=== PATIENT | female | born 1990 | race Caucasian/White ===

== ENCOUNTER 2023-02-26 09:26 | Outpatient (CLI) | payer OTHER, SELFPAY | END 2023-02-26 09:27 | disposition home or self-care (01) | LOC: ANHSURGERY 09:32 | PROVIDERS: PCP Family Medicine; Visit Provider Obstetrics & Gynecology | DX: Z01.818 Encounter for other preprocedural examination (principal); N83.209 Unspecified ovarian cyst, unspecified side | CPT/HCPCS: 36415; 86850; 86900; 86901 ==

== ENCOUNTER 2023-03-05 00:22 | Day surgery (SDC) | payer OTHER, SELFPAY ==
[2023-02-24 11:32] VITALS: BMI 32.9
--- NOTE | 2023-02-24 11:40 | PC.NURSE ---
Report to the Outpatient Waiting Room, entrance under the green pavilion located off [facility], at time 7:00 on date 03/05/23. Planned Procedure Time: 9:00. Time changes happen often and if your time is changed the preop area will call you the afternoon before. - You and your visitor will be asked to self-screen and do not enter if you have any COVID symptoms. - A mask is optional within the hospital at this time. Patients may have clear liquids (water, carbonated beverages, clear teas, apple juice) until 3 hours prior to surgery (6:00) with a maximum of 20 ounces. - No food from midnight until time of surgery Take the following medications with a SIP of water the morning of surgery: N/A DO NOT STOP ANY OF YOUR OTHER PRESCRIPTION MEDICATIONS PRIOR TO SURGERY ?EXCEPT THE FOLLOWING Medications to discontinue per physician: N/A Date to take last dose: N/A Please no make-up, nail stateless, hairspray, perfume, deodorant, or body powder the day of surgery. No jewelry (including any body piercings) or valuables the day of surgery, leave them at home. Please take a shower or bath the night before, or the morning of, surgery with an antibacterial soap. Wear comfortable, loose fitting clothing. - Jewelry must be removed prior to entering the operating room. Rings and piercings that are not removed may be cut off. - The hospital will not accept responsibility for valuables. - Please leave all valuables, including medications, at home the day of surgery. If you are going home after surgery, a licensed bicycle taxi driver must drive you home. - NO public transportation without another adult if you receive anesthesia. - We recommend that an adult stay with you for 24 hours following discharge. - We also recommend that you do not drive, make important decision, drink alcoholic beverages, or take any drugs that were not prescribed by your health care provider for at least 24 hours after your discharge time. Follow any additional instructions given to you from your surgeon. If you or anyone in your household have experienced Covid symptoms in the past week, please notify your surgeon or the nurse liaison at the phone number below for possible testing. Telephone instructions given to PT - DAVID MARCIAL and asked if any additional questions and then verbalized understanding. Patient advised to call surgeon office or pre surgery nurse liaison [phone] if any additional questions.
--- NOTE | 2023-03-03 07:28 | PM.IMHP ---
H&P: HPI History of Present Illness Date/Time: 03/03/23 07:28 Chief Complaint: Pelvic pain with right ovarian cyst and dysmenorrhea Narrative: Was a 32-year-old [id number]-[id number] mom who is admitted for laparoscopy with right ovarian cystectomy. She has pain discomfort and dyspareunia. Removed she has an ultrasound which shows right ovarian cyst. The pain seems to be especially more on the right. Risks and benefits of this procedure reviewed including but not exclusive of , aspiration pneumonia, bleeding, transfusion, perforation injury to bowel, bladder, ureters, or other internal organs with need for open laparotomy. She received the [employer] handout entitled laparoscopy. She had all questions answered. She asked to proceed PMF Family History Family History Grandparent Hypertension Family history of malignant neoplasm of ovary Social History Social History Smoking status: Never smoker Alcohol intake: never Substance use: current Substance use type: marijuana Living arrangements: with family Spiritual care concerns: No Meds Home Medications and Allergies Home Medications Medication Instructions Recorded Confirmed Type No Home Medications 02/24/23 02/24/23 History Allergies Allergy/AdvReac Type Severity Reaction Status Date / Time codeine Allergy Unknown Vomiting Verified 02/24/23 11:31 latex Allergy Rash Verified 02/24/23 11:31 hydrocodone AdvReac Intermediate VOMITING Verified 02/24/23 11:31 Exam Const: General: cooperative, healthy appearing and comfortable Nutritional Appearance: average body habitus Orientation/consciousness: oriented to person, oriented to place and oriented to time HENMT: Head: normal to inspection Resp: Effort & Inspection: normal respiratory effort Cardio: Rate: regular rate Rhythm: regular rhythm Heart sounds: S1 normal heart sound present and S2 normal heart sound present GI: Inspection: normal to inspection : External Female Exam: normal external appearance Speculum Exam - Vagina: normal appearance of the vagina Speculum Exam - Cervix: normal appearance of the cervix Bimanual exam- vagina & uterus: Uterine tenderness Bimanual Exam- Adnexa, other: tender bilaterally Assessment and Plan Assessment and plan (1) Right ovarian cyst: Code(s): N83.201 - Unspecified ovarian cyst, right side Status: Acute (2) Pelvic pain: Code(s): R10.2 - Pelvic and perineal pain Status: Acute Plan Laparoscopic right cystectomy.
[2023-03-05] VITALS (9 sets, daily range): BP systolic 104–124; BP diastolic 72–90; PULSE 54–92; RESP 12–20; TEMP 36.2–36.3; O2SAT 96–100
--- NOTE | 2023-03-05 06:28 | WPDHPUPDATE1 ---
History and Physical Update Update Date/Time: 03/05/23 06:28 History and Physical has been reviewed, including an updated exam of the patient. There are NO changes in the patient's condition. Risks, benefits, and alternatives have been discussed and questions answered. Patient agrees to proceed with procedure.
--- NOTE | 2023-03-05 07:45 | P.PNAN_ITS ---
Anes - Initial Pre Proc Eval Procedure: Operation Date: 03/05/23 09:00 Proposed Procedures p Laparoscopy Right Ovarian Cystectomy - Maury Lara MD Date/Time: 03/05/23 07:45 Surgeon: Maury Lara MD Pre Op Diagnosis: right ovarian cyst, pelvic pain, dysmenorrhea Patient Data Age: 32 Gender: F Height: 1.7 m Weight: 95.3 kg Allergies Allergy/AdvReac Type Severity Reaction Status Date / Time codeine Allergy Unknown Vomiting Verified 03/05/23 07:22 latex Allergy Rash Verified 03/05/23 07:22 hydrocodone AdvReac Intermediate VOMITING Verified 03/05/23 07:22 Home Medications Medication Instructions Recorded Confirmed Type hydrocodone 5 mg-acetaminophen 325 1 tablet PO Q4H PRN pain #20 tabs 03/05/23 Rx mg tablet Patient hx anesthesia problems: none Family hx anesthesia problems: none Results Review: All pre-operative results and documents have been reviewed as part of the pre- operative evaluation. [facility] Past Medical History Medical History (Updated 03/05/23 @ 07:53 by Maury Lynch MD) Anxiety Marijuana abuse Obesity Surgical History Surgical History (Updated 03/05/23 @ 07:54 by Maury Lynch MD) H/O nasal septoplasty History of cholecystectomy Family History Family History Grandparent Hypertension Family history of malignant neoplasm of ovary Social History Social History Smoking status: Never smoker Alcohol intake: never Substance use: current Substance use type: marijuana Living arrangements: with family Spiritual care concerns: No Anes - Eval Final PreProcedure Day of Procedure 03/05/23 07:45 Patient weight: obese Heart: regular rate and rhythm Lungs: clear to auscultation Airway: Mallampati scale class II Neurological: alert and oriented Last oral intake: >/= 8 hours ASA classification: III Emergent: no Anesthetic plan: proceed Anesthesia type and monitoring: general GIVS and standard monitoring Results Review: All pre-operative results and documents have been reviewed as part of the pre- operative evaluation. Informed Consent: The patient's anesthetic plan and its attendant risks and benefits were discussed with the patient/family/POA. Questions were solicited and answers provided to the satisfaction of the patient/family/POA.
[2023-03-05] MEDS: LACTATED RINGERS 1,000 ML 30 ML IV CONT ×2 (07:50→10:09)
[2023-03-05] MEDS: KETOROLAC 15 MG/ML VIAL (*BKC) IV PUSH (08:09)
[2023-03-05] MEDS: SCOPOLAMINE 1.5 MG PATCH TRANSDERM (08:12)
--- NOTE | 2023-03-05 09:01 | P.OP_ITS ---
Procedure Note - Detailed Date of Procedure 03/05/23 Pre-op Diagnosis right ovarian cyst, pelvic pain, dysmenorrhea Post-op Diagnosis Other (Pelvic pain right ovarian cyst dysmenorrhea endometriosis) Procedure Performed Laparoscopy with destruction of right ovarian cyst and destruction of endometriosis Surgeon Maury Lara MD Anesthesia General Indications This 32-year-old female with a right ovarian cyst and pelvic pain Findings Benign-appearing right ovarian cyst that appeared follicular in nature. [id number] of serosanguineous fluid in the cul-de-sac. Small areas of powder burn endometriosis along the right and left uterosacral ligaments. Normal-appearing left ovary and tube. Normal-appearing right tube. Normal- appearing uterus. Normal-appearing appendix. Gallbladder appeared to be surgically absent. Description of Procedure Patient was prepped and draped in the normal sterile fashion placed in the dorsal lithotomy position. Under excellent general trach anesthesia weighted speculum placed in posterior fornix vagina. Anterior lip of the cervix was grasped with a single-tooth tenaculum. The Pemberton's cannula inserted the cervix and attached to the single-tooth. This will be used later for uterine manipulation. The bladder was emptied of clear urine. The weighted speculum was removed. The gloves were changed. An infraumbilical incision made in the Veress needle passed in the abdomen. Abdomen filled with CO2 gas [id number]. 5mm trocar advanced under direct visualization assuring no injury. The patient placed in Trendelenburg and a suprapubic incision made. The 5mm trocar advanced under direct visualization assuring no injury. [id number] of serosanguineous fluid was seen in the cul-de-sac and this was suction removed. The right ovarian cyst appeared very simple and follicular in nature. It was opened in linear fashion and drained of clear follicular fluid. Irrigation undertaken until clear. Small areas of endometriosis were seen along the right left uterosacral ligament. These were cauterized at 45 w per 2nd and with good desiccation. Photo documentation was taken of the rest of the pelvis as noted above. The gas removed from the abd omen. The lower site removed. The upper site removed. The incisions closed with 4 Monocryl and glue. Patient went to recovery in satisfactory condition. All sponge, needle, instrument counts were correct. There were no immediate complications Estimated Blood Loss 25 Drains No Packing No Pathology None sent Complications No immediate complications Condition Stable Disposition PACU
[2023-03-05] MEDS: ONDANSETRON INJ 4 MG/2 ML VIAL IV PUSH (09:14)
[2023-03-05] MEDS: diphenhydrAMINE HCl INJ 50 MG/ML VIAL 25 MG IV PUSH (10:04)
--- NOTE | 2023-03-05 10:28 | SUR.PHASEII ---
1028 - MD Sony Lara notified that Phase 2 recovery did not receive paper prescription for hydrocodone - acetaminophen. Pt. can d/c home with ketorolac printed script only per MD Sony Lara.
== END 2023-03-05 10:54 | disposition home or self-care (01) ==
PROVIDERS: PCP Family Medicine; Visit Provider Obstetrics & Gynecology
PROC: (CPT 49320; principal; 2023-03-05 09:00)
DX: N83.201 Unspecified ovarian cyst, right side (principal); N80.3C3 Endometriosis of bilateral uterosacral ligament(s), unspecified depth; R10.2 Pelvic and perineal pain; N94.6 Dysmenorrhea, unspecified; F12.90 Cannabis use, unspecified, uncomplicated; E66.9 Obesity, unspecified; Z68.32 Body mass index [BMI] 32.0-32.9, adult
CPT/HCPCS: 58662; 36415; 86850; 86900; 86901; A9270; J1100; J1200; J1885; J2250; J2405; J2704; J2710; J7120

== ENCOUNTER 2024-08-23 09:02 | Outpatient (CLI) | payer OTHER, SELFPAY ==
[2024-08-23 10:02] LABS: Basophils Absolute Auto 0.1 K/mm3 (0.0-0.1); Basophils Percent Auto 0.9 % (0.2-1.2); Eosinophils Absolute Auto 0.3 K/mm3 (0-0.3); Eosinophils Percent Auto 4.6 % (0-4.4); Hematocrit 44.4 % (37.0-47.0); Hemoglobin 14.4 g/dL (12.0-15.0); Immature Granulocyte Absolute 0.02 K/mm3 (0.00-0.031); Immature Granulocyte Percent A 0.3 % (0-0.5); Lymphocytes Absolute Auto 2.37 K/mm3 (0.9-3.2); Lymphocytes Percent Auto 35.3 % (18.3-44.2); Mean Corpuscular HGB Conc 32.4 g/dl (32-36); Mean Corpuscular Hemoglobin 29.2 pg (26-34); Mean Corpuscular Volume 90.1 fl (80-100); Mean Platelet Volume 10.7 fl (7.4-10.4); Monocytes Absolute Auto 0.5 K/mm3 (0.1-0.6); Monocytes Percent Auto 6.7 % (2.6-8.5); Neutrophils Absolute Auto 3.5 K/mm3 (1.3-6.7); Neutrophils Percent Auto 52.2 % (45.5-73.1); Platelet Count Result 209 k/mm3 (150-375); Red Blood Count 4.93 M/mm3 (4.2-5.4); Red Cell Distribution Width 12.2 % (11.5-14.5); White Blood Count 6.7 K/mm3 (4.5-10.0)
== END 2024-08-23 09:03 | disposition home or self-care (01) ==
LOC: ANHLAB 09:04
PROVIDERS: PCP Family Medicine; Visit Provider Obstetrics & Gynecology
DX: N94.89 Other specified conditions associated with female genital organs and menstrual cycle (principal)
CPT/HCPCS: 36415; 85025; 86850; 86900; 86901

== ENCOUNTER 2024-08-25 00:01 | Day surgery (SDC) | payer OTHER, SELFPAY ==
--- NOTE | 2024-08-14 13:19 | SUR.PREOP ---
Report to the Outpatient Waiting Room, entrance under the green pavilion located off [facility], at time _0600_ on date _08/25/2024_. Planned Procedure Time: _0730_.? Time changes happen often and if your time is changed the preop area will call you the afternoon before. - You and your visitor will be asked to self-screen and do not enter if you have any COVID symptoms. Please call surgeon if you need to reschedule. - A mask is optional within the hospital at this time. Patients may have clear liquids (water, carbonated beverages, clear teas, apple juice) until 3 hours prior (0430) to surgery with a maximum of 20 ounces. - No food from midnight until time of surgery and no smoking, or chewing tobacco (or any form of nicotine). No chewing gum, candy or mints. Take only the following medications with a SIP of water on the morning of surgery: _NA_ DO NOT STOP ANY OF YOUR OTHER PRESCRIPTION MEDICATIONS PRIOR TO SURGERY EXCEPT THE FOLLOWING Hold all vitamins and supplements for 3 days per anesthesiologist. Medications to discontinue per physician _ketorolac per Dr. Sony Lara_ Please no make-up, nail indonesian, hairspray, perfume, deodorant, or body powder the day of surgery.? No jewelry (including any body piercings) or valuables the day of surgery, leave them at home.? Please take a shower or bath the night before, or the morning of, surgery with an antibacterial soap.? Wear comfortable, loose fitting clothing.? - Jewelry must be removed prior to entering the operating room.? Rings and piercings that are not removed may be cut off. - The hospital will not accept responsibility for valuables.? - Please leave all valuables, including medications, at home the day of surgery. If you are going home after surgery, a licensed jinrikisha driver must drive you home.? - NO public transportation without another adult if you receive anesthesia. - We recommend that an adult stay with you for 24 hours following discharge. - We also recommend that you do not drive, make important decision, drink alcoholic beverages, or take any drugs that were not prescribed by your health care provider for at least 24 hours after your discharge time. Follow any additional instructions given to you from your surgeon. Telephone instructions given to _Meghan_and asked if any additional questions and then verbalized understanding. Patient advised to call surgeon office or pre surgery nurse liaison [phone] if any additional questions.
[2024-08-14 13:30] VITALS: BMI 28.5
--- NOTE | 2024-08-22 07:53 | P.HP_ITS ---
H&P: HPI History of Present Illness Date/Time: 08/22/24 07:53 Chief Complaint: Pelvic pain dyspareunia Narrative: 34-year-old multiparous patient admitted for robotic total vaginal hysterectomy bilateral salpingectomy secondary to enlarged uterus and pelvic pain risks and benefits reviewed in full. She understands this will make her permanently infertile and all questions answered and asked to proceed Review of Systems Review of Systems: All systems reviewed & are unremarkable except as noted in HPI and below PMFSH Past Medical History Medical History Marijuana abuse Anxiety Obesity Surgical History Surgical History H/O nasal septoplasty History of cholecystectomy Family History Family History Grandparent Hypertension Family history of malignant neoplasm of ovary Social History Social History Smoking status: Never smoker Second hand tobacco smoke exposure: No Alcohol intake: never Substance use: current Substance use type: marijuana Other substance usage details: daily Living arrangements: with family Additional living arrangements comments: and children Spiritual care concerns: No Meds Home Medications and Allergies Home Medications ?Medication ?Instructions ?Recorded ?Confirmed ?Type ketorolac 10 mg tablet 10 mg PO QID 5 days #20 tabs 03/05/23 08/14/24 Rx Allergies Allergy/AdvReac Type Severity Reaction Status Date / Time codeine Allergy Unknown Vomiting Verified 08/14/24 13:31 latex Allergy Rash Verified 08/14/24 13:31 hydrocodone AdvReac Intermediate VOMITING Verified 08/14/24 13:31 Exam Const: General: cooperative, healthy appearing, comfortable and overweight Orientation/consciousness: oriented to person, oriented to place and oriented to time HENMT: Head: normal to inspection Resp: Effort & Inspection: normal respiratory effort Cardio: Rate: regular rate Rhythm: regular rhythm Heart sounds: S1 normal heart sound present and S2 normal heart sound present GI: Inspection: normal to inspection and obesity : External Female Exam: normal external appearance Speculum Exam - Vagina: normal appearance of the vagina Speculum Exam - Cervix: normal appearance of the cervix Bimanual exam- vagina & uterus: enlarged (Second- degree prolapse present) Bimanual Exam- Adnexa, other: normal adnexae Assessment and Plan Assessment and plan (1) Pelvic pain: Code(s): R10.2 - Pelvic and perineal pain Status: Acute (2) Uterine prolapse: Code(s): N81.4 - Uterovaginal prolapse, unspecified Status: Acute Plan Proceed with robotic total vaginal hysterectomy and bilateral salpingectomy
[2024-08-25] VITALS (11 sets, daily range): BP systolic 108–144; BP diastolic 72–85; PULSE 65–94; RESP 14–20; TEMP 36.4–37; O2SAT 92–100
--- OUTSIDE RECORDS SUMMARY | 2024-08-25 00:04 | XMS_ITS | Data Portability ---
[facility] Address [address] [place] [address] Assessment No assessment recorded. Plan of Treatment Reminders Order Date Submit Date Provider Last Modified By Organization Details Last Modified Time Details Appointments None recorded . Lab dhea-sul fate, serum 2016 017 [place] [facility], [address], [place], [address], 7 06:14:17 lipid panel, serum 2016 017 [place] [facility], [address], [place], [address], 7 06:14:16 testoste kit, total, serum 2016 017 [place] [facility], [address], [place], [address], 7 06:14:16 CMP, serum or plasma 2016 017 [place] [facility], [address], [place], [address], 7 06:14:15 TSH, ultra-se nsitive, serum 2016 017 [place] [facility], [address], [place], [address], 7 06:14:17 HbA1c (hemoglo bin A1c), blood 2016 017 [facility], [address], [place], [address], 7 06:14:17 FSH (follicl e-stimul ating hormone) , serum 2016 017 [facility], [address] [place] [address], [address], [place], [address], 7 06:14:18 lh (luteini zing hormone) , serum 2016 017 [facility], [address] [place] [address], [facility] [address], [place], [address], 7 06:14:18 prolacti n, serum 2016 017 [facility], [address] [place] [address], [facility] [address], [place], [address], 7 06:14:19 progeste kit, serum 2016 017 [facility], [address], [place], [address], 7 06:14:19 estradio l, serum 2016 017 [facility], [address], [place], [address], 7 06:14:19 pap, IG + HPV, cervical 2016 017 [facility], [address], [place], [address], 7 16:15:16 pregnanc y test, urine 2016 017 eliseo In-Office Order, Internal Use Only DO Not Attach Compendium DO Not Attach Compendium, Do Not Delete/merge, [id number] 7 15:26:35 urinalys is, dipstick [address] In-Office Order, Internal Use Only DO Not Attach Compendium DO Not Attach Compendium, Do Not Delete/merge, [id number] 7 15:26:35 bacteria l vaginosi s + vaginiti s panel, vaginal - Z11.3 2016 017 [place] [facility], [address] [place] [address], [address], [place], [address], 7 06:04:49 HSV (1+2) DNA, qual, PCR, unspecif ied specimen - Z11.3 2016 017 [place] [facility], [address] [place] [address], [address], [place], [address], 7 06:04:51 culture, vaginal/ rectal, streptoc occus group B - Z11.3 2016 017 [facility], [address] [place] [address], [address], [place], [address], 7 06:04:54 Referral nutritio nist/ randiian referral [address] Not available 7 15:52:48 bariatri c surgery referral - Bariatri c Surgery Consult [address] [email or web address] Not available 7 09:03:27 Procedures None recorded . Surgeries None recorded . Imaging None recorded . Medication Orders Lo Loestrin Fe 1 mg-10 mcg (24)/10 mcg (2) tablet 2019 020 INTERFACE [facility]61, [address] [place], [address], 0 16:11:54 Calcium with Vitamin D 600 mg-10 mcg (400 unit) tablet 2019 020 [facility] [address], [address] [place] [address], [address], 0 11:10:56 Slynd 4 mg (28) tablet 2019 020 [facility] 176, [address] [place] [address], [address], 0 11:11:00 28 mg iron-800 mcg tablet 2019 020 [facility] [address], [address] [place] [address], [address], 0 11:10:58 Contrave 8 mg-90 mg tablet,e xtended release 2016 017 [facility] Not available 0 10:55:32 metformi n 500 mg tablet 2016 017 [facility] [address], [address] [place] [address], [address], 0 10:55:38 calcium 600 mg (as carbonat e)-vitam in D3 20 mcg (800 unit) tablet 2016 017 [place] [address], [address] [place] [address], [address], 0 10:55:29 multivit patricia tablet 2016 017 [place] [address], [address] [place] [address], [address], 0 10:55:41 Patient TargetsNo targets recorded. Patient Instructions Encounter Date Encounter Id Patient Instructions Last Modified By Organization Details Last Modified Time 07/11/2014 [id number] implant for control: care instructions [email or web address] Not available 08/14/2014 14:39:25 08/26/2016 [id number] Learning About Weight-Loss (Bariatric) Surgery eliseo Not available 08/26/2016 15:54:38 bariatric surgery handout [email or web address] Not available 08/26/2016 15:55:38 learning about obesity [email or web address] Not available 08/26/2016 15:54:38 When You Want to Lose Weight: Care Instructions eliseo Not available 08/26/2016 15:54:38 polycystic ovary syndrome: care instructions eliseo Not available 08/26/2016 15:49:03 Reason for Referral Mail Delivery Supervisor/dietitian Refer ral for Obesity Obesity Referring Physician: Philipp Vivas [employer], Encounter Date: 08/26/2016 Bariatric Surgery Referral f or Obesity Obesity Bariatric Surgery Consult Referring Physician: Philipp Vivas [employer], Encounter Date: 08/26/2016 Results Created Date Observation Date Name Description Value Unit Range Abnormal Flag Note LastModifiedBy Organization Detail LastModifiedTime 08/27/19 17 08/26/2016 urina lysis , dipst ick Leukocytes Negati ve Not Available In-Office Order Internal Use Only DO Not Attach Compendium DO Not Attach Compendium, Do Not Delete/merge, [id number] 08/26/2016 14:57:10 08/27/19 17 08/26/2016 urina lysis , dipst ick Nitrite negati ve Not Available In-Office Order Internal Use Only DO Not Attach Compendium DO Not Attach Compendium, Do Not Delete/merge, [id number] 08/26/2016 14:57:10 08/27/19 17 08/26/2016 urina lysis , dipst ick Urobilinogen .2 Not Available In-Of fice Order Internal Use Only DO Not Attach Compendium DO Not Attach Compendium, Do Not Delete/merge, [id number] 08/26/2016 14:57:10 08/27/19 17 08/26/2016 urina lysis , dipst ick Protein Negati ve Not Available In-Office Order Internal Use Only DO Not Attach Compendium DO Not Attach Compendium, Do Not Delete/merge, [id number] 08/26/2016 14:57:10 08/27/19 17 08/26/2016 urina lysis , dipst ick pH 6.0 Not Available In-Office Order Internal Use Only DO Not Attach Compendium DO Not Attach Compendium, Do Not Delete/merge, 08/26/2016 14:57:10 08/27/19 17 08/26/2016 urina lysis , dipst ick Blood Negati ve Not Available In-Office Order Internal Use Only DO Not Attach Compendium DO Not Attach Compendium, Do Not Delete/merge, 08/26/2016 14:57:10 08/27/19 17 08/26/2016 urina lysis , dipst ick Specific [place] 1.020 Not Available In-Off ice Order Internal Use Only DO Not Attach Compendium DO Not Attach Compendium, Do Not Delete/merge, 08/26/2016 14:57:10 08/27/19 17 08/26/2016 urina lysis , dipst ick Ketone Negati ve Not Available In-Office Order Internal Use Only DO Not Attach Compendium DO Not Attach Compendium, Do Not Delete/merge, 08/26/2016 14:57:10 08/27/19 17 08/26/2016 urina lysis , dipst ick Bilirubin Negati ve Not Available In-Office Order Internal Use Only DO Not Attach Compendium DO Not Attach Compendium, Do Not Delete/merge, 08/26/2016 14:57:10 08/27/19 17 08/26/2016 urina lysis , dipst ick Glucose Negati ve Not Available In-Office Order Internal Use Only DO Not Attach Compendium DO Not Attach Compendium, Do Not Delete/merge, 08/26/2016 14:57:10 08/27/19 17 08/26/2016 pregn joseph test, urine HCG negati ve Not Available In-Office Order Internal Use Only DO Not Attach Compendium DO Not Attach Compendium, Do Not Delete/merge, 08/26/2016 14:57:09 08/27/19 17 08/27/2016 CMP, serum or plasm a glucose, serum 87 mg/dL 65-99 Not Available [facility] ([facility]) [address] [facility], [place], [address], 08/27/2016 06:14:15 08/27/19 17 08/27/2016 CMP, serum or plasm a BUN 10 mg/dL 6-20 Not Available [facility] ([facility]) [address] [place], [address], 08/27/2016 06:14:15 08/27/19 17 08/27/2016 CMP, serum or plasm a creatinine, serum 0.65 mg/dL 0.57-1 .00 Not Available [facility] ([facility]) [address] [place], [address], 08/27/2016 06:14:15 08/27/19 17 08/27/2016 CMP, serum or plasm a eGFR if nonafricn AM 125 mL/mi n/1.7 3 >59 Not Available [facility] ([facility]) [address] [place], [address], 08/27/2016 06:14:15 08/27/19 17 08/27/2016 CMP, serum or plasm a eGFR if africn AM 144 mL/mi n/1.7 3 >59 Not Available [facility] ([facility]) [address] [place], [address], 08/27/2016 06:14:15 08/27/19 17 08/27/2016 CMP, serum or plasm a BUN/creatini ne ratio 15 8-20 EFF ECTIV E AUGUST 31, 2016 BUN/C REATI NINE RATIO REFER ENCE INTER LYDIA WILL BE CLOUD ING TO: AGE MALE FEMAL E 0 DAYS - 7 DAYS 9 - 25 9 - 26 8 DAYS - 30 DAYS 8 - 32 10 - 33 1 MONTH - 6 MONTH S 11 - 57 11 - 54 7 MONTH S - 1 YEAR - 71 20 - 71 2 YEARS - 5 YEARS 19 - 51 19 - 49 6 YEARS - 12 YEARS 14 - 34 13 - 32 13 YEARS - 17 YEARS 10 - 22 10 - 22 18 YEARS - 59 YEARS 9 - 20 9 - 23 >59 YEARS 10 - 24 12 - 28 Not Available [facility] ([facility]) [address] [place], [address], 08/27/2016 06:14:15 08/27/19 17 08/27/2016 CMP, serum or plasm a sodium, serum 142 mmol/ L 134-14 4 Not Available [facility] ([facility]) [address] [place] [address], [address], 08/27/2016 06:14:15 08/27/19 17 08/27/2016 CMP, serum or plasm a potassium, serum 4.1 mmol/ L 3.5-5. 2 Not Available [facility] ([facility]) [address] [place], [address], 08/27/2016 06:14:15 08/27/19 17 08/27/2016 CMP, serum or plasm a chloride, serum 101 mmol/ L 96-106 Not Available [facility] ([facility]) [address] [place] [address], [address], 08/27/2016 06:14:15 08/27/19 17 08/27/2016 CMP, serum or plasm a carbon dioxide, total 21 mmol/ L 18-29 Not Available [facility] ([facility]) [address] [place] [address], [address], 08/27/2016 06:14:15 08/27/19 17 08/27/2016 CMP, serum or plasm a calcium, serum 9.5 mg/dL 8.7-10 .2 Not Available [facility] ([facility]) [address] [place], [address], 08/27/2016 06:14:15 08/27/19 17 08/27/2016 CMP, serum or plasm a protein, total, serum 7.3 g/dL 6.0-8. 5 Not Available [facility] ([facility]) [address] [place] [address], [address], 08/27/2016 06:14:15 08/27/19 17 08/27/2016 CMP, serum or plasm a albumin, serum 4.6 g/dL 3.5-5. 5 Not Available [facility] ([facility]) [address] [place], [address], 08/27/2016 06:14:15 08/27/19 17 08/27/2016 CMP, serum or plasm a globulin, total 2.7 g/dL 1.5-4. 5 Not Available [facility] ([facility]) [address] [place], [address], 08/27/2016 06:14:15 08/27/19 17 08/27/2016 CMP, serum or plasm a A/G ratio 1.7 1.2-2. 2 PLE ASE NOTE REFER ENCE MAILE Denise Not Available [facility] ([facility]) [address] [place], [address], 08/27/2016 06:14:15 08/27/19 17 08/27/2016 CMP, serum or plasm a bilirubin, total 0.7 mg/dL 0.0-1. 2 Not Available [facility] ([facility]) [address] [place], [address], 08/27/2016 06:14:15 08/27/19 17 08/27/2016 CMP, serum or plasm a alkaline phosphatase, S 56 IU/L 39-117 Not Available [facility] ([facility]) [address] [place], [address], 08/27/2016 06:14:15 08/27/19 17 08/27/2016 CMP, serum or plasm a AST (SGOT) 14 IU/L 0-40 Not Available [facility] ([facility] [address] [facility] [place], [address], 08/27/2016 06:14:15 08/27/19 17 08/27/2016 CMP, serum or plasm a ALT (SGPT) 17 IU/L 0-32 Not Available [facility] ([facility]) [address] [place], [address], 08/27/2016 06:14:15 08/27/19 17 08/27/2016 lipid panel , serum cholesterol, total 172 mg/dL 100-19 9 Not Available [facility] ([facility]) [address] [facility] [place], [address], 08/27/2016 06:14:16 08/27/19 17 08/27/2016 lipid panel , serum triglyceride s 131 mg/dL 0-149 Not Available [facility] ([facility]) [address] [facility], [place], [address], 08/27/2016 06:14:16 08/27/19 17 08/27/2016 lipid panel , serum HDL cholesterol 49 mg/dL >39 Not Available [facility] ([facility]) [address] [facility], [place], [address], 08/27/2016 06:14:16 08/27/19 17 08/27/2016 lipid panel , serum VLDL cholesterol anne 26 mg/dL 5-40 Not Available [facility] ([facility]) [address] [facility], [place], [address], 08/27/2016 06:14:16 08/27/19 17 08/27/2016 lipid panel , serum LDL cholesterol calc 97 mg/dL 0-99 Not Available [facility] ([facility]) [address] [facility], [place], [address], 08/27/2016 06:14:16 08/27/19 17 08/27/2016 lipid panel , serum comment: VOLUNTEER SERVICES COORDINATOR Not Available [facility] ([facility]) [address] [facility], [place], [address], 08/27/2016 06:14:16 08/27/19 17 08/27/2016 lipid panel , serum LDL/HDL ratio 2.0 ratio _unit s 0.0-3. 2 LDL/H DL RATIO MEN WOMEN 1/2 AVG.R ISK 1.0 1.5 AVG.R ISK 3.6 3.2 2X AVG.R ISK 6.2 5.0 3X AVG.R ISK 8.0 6.1 Not Available [facility] ([facility]) [address] [place], [address], 08/27/2016 06:14:16 08/27/19 17 08/27/2016 testo stero ne, total , serum testosterone , serum 48 NG/dL 8-48 Not Available [facility] ([facility]) [address] [place], [address], 08/27/2016 06:14:16 08/27/19 17 08/27/2016 testo stero ne, total , serum comment: VOLUNTEER SERVICES COORDINATOR Not Available [facility] ([facility]) [address] [place], [address], 08/27/2016 06:14:16 08/27/19 17 08/27/2016 HbA1c (hemo globi n A1c), blood hemoglobin A1C 5.3 % 4.8-5. 6 PRE-D IABET ES: 5.7 - 6.4 DIABE THU: >6.4 GLYCE RIDGE CONTR OL FOR ADULT S WITH DIABE THU: <7.0 Not Available [facility] ([facility]) [address] [place], [address], 08/27/2016 06:14:16 08/27/19 17 08/27/2016 dhea- sulfa te, serum DHEA-sulfate 214.5 ug/dL 110.0- 431.7 Not Available [facility] ([facility]) [address] [place], [address], 08/27/2016 06:14:17 08/27/1908/27/2016 TSH, ultra -sens itive , serum TSH 1.050 uIU/m L 0.450- 4.500 Not Available [facility] ([facility]) [address] [place], [address], 08/27/2016 06:14:17 08/27/19 17 08/27/2016 lh (lute inizi ng hormo ne), serum LH 20.8 mIU/m L ADULT FEMAL E: FOLLI CULAR PHASE 2.4 - 12.6 OVULA TION PHASE 14.0 - 95.6 LUTEA L PHASE 1.0 - 11.4 POSTM ENOPA USAL 7.7 - 58.5 Not Available [facility] ([facility]) [address] [place], [address], 08/27/2016 06:14:18 08/27/19 17 08/27/2016 FSH (foll icle- stimu latin g hormo ne), serum FSH 4.7 mIU/m L ADULT FEMAL E: FOLLI CULAR PHASE 3.5 - 12.5 OVULA TION PHASE 4.7 - 21.5 LUTEA L PHASE 1.7 - 7.7 POSTM ENOPA USAL 25.8 - 134.8 Not Available [facility] ([facility]) [address] [place], [address], 08/27/2016 06:14:18 08/27/19 17 08/27/2016 prola ctin, serum prolactin 19.1 NG/mL 4.8-23 .3 Not Available [facility] ([facility]) [address] [place], [address], 08/27/2016 06:14:19 08/27/19 17 08/27/2016 estra diol, serum estradiol 70.7 pg/mL ADULT FEMAL E: FOLLI CULAR PHASE 12.5 - 166.0 OVULA TION PHASE 85.8 - 498.0 LUTEA L PHASE 43.8 - 211.0 POSTM ENOPA USAL <6.0 - 54.7 PREGN JOSEPH 1ST TRIME STER 215.0 - >4300 .0 GIRLS (1-10 YEARS ) 6.0 - 27.0 MAHNAZ ECLIA METHO DOLOG Y Not Available [facility] ([facility]) [address] [place], [address], 08/27/2016 06:14:19 08/27/19 17 08/27/2016 proge stero ne, serum progesterone 0.3 NG/mL FOLLI CULAR PHASE 0.1 - 0.9 LUTEA L PHASE 1.8 - 23.9 OVULA TION PHASE 0.1 - 12.0 PREGN ANT FIRST TRIME STER 11.0 - 44.3 SECON D TRIME STER 25.4 - 83.3 THIRD TRIME STER 58.7 - 214.0 POSTM ENOPA USAL 0.0 - 0.1 Not Available [facility] ([facility]) [address] [place], [address], 08/27/2016 06:14:19 08/27/19 17 08/28/2016 bacte rial vagin osis + vagin itis panel , vagin al trich vag by KYLE NEGATI VE negati ve Not Available [facility] ([facility]) [address] [place], [address], 08/31/2016 06:04:49 08/27/19 17 08/28/2016 bacte rial vagin osis + vagin itis panel , vagin al chlamydia trachomatis, KYLE NEGATI VE negati ve Not Available [facility] ([facility]) [address] [place], [address], 08/31/2016 06:04:49 08/27/19 17 08/28/2016 bacte rial vagin osis + vagin itis panel , vagin al neisseria gonorrhoeae, KYLE NEGATI VE negati ve Not Available [facility] ([facility]) [address] [place], [address], 08/31/2016 06:04:49 08/27/19 17 08/29/2016 bacte rial vagin osis + vagin itis panel , vagin al atopobium vaginae LOW - 0 score Not Available [facility] ([facility]) [address] [place], [address], 08/31/2016 06:04:49 08/27/19 17 08/29/2016 bacte rial vagin osis + vagin itis panel , vagin al bvab 2 LOW - 0 score Not Available [facility] ([facility]) [address] [place], [address], 08/31/2016 06:04:49 08/27/19 17 08/29/2016 bacte rial vagin osis + vagin itis panel , vagin al megasphaera 1 LOW - 0 score CALCU LATE TOTAL SCORE BY ESA Steiner THE 3 INDIV IDUAL BACTE RIAL VAGIN OSIS (BV) MARKE R SCORE S TOGET HER. TOTAL SCORE IS INTER PRETE D FOLLO WS: TOTAL SCORE 0-1: INDIC ATES THE ABSEN CE OF BV. TOTAL SCORE 2: INDET ERMIN ATE FOR BV. ADDIT IONAL CLINI ANNE DATA SHOUL D BE EVALU ATED TO ESTAB ERASTO A DIAGN OSIS. TOTAL SCORE 3-6: INDIC ATES THE PRESE NCE OF BV. THIS TEST WAS DEVEL OPED AND ITS PERFO RMANC E MICHEAL CTERI STICS DETER MINED BY [employer]. IT HAS NOT BEEN CLEAR ED OR APPRO MANGO BY THE FOOD AND DRUG ADMIN ISTRA TION. THE FDA HAS DETER MINED THAT SUCH CLEAR ANCE OR APPRO LYDIA IS NOT NECES YOLANDA. Not Available [facility] ([facility]) [address] [facility], [place], [address], 08/31/2016 06:04:49 08/27/19 17 08/29/2016 bacte rial vagin osis + vagin itis panel , vagin al marv albicans, KYLE NEGATI VE negati ve Not Available [facility] ([facility]) [address] [place], [address], 08/31/2016 06:04:49 08/27/19 17 08/29/2016 bacte rial vagin osis + vagin itis panel , vagin al marv glabrata, KYLE NEGATI VE negati ve THIS TEST WAS DEVEL OPED AND ITS PERFO RMANC E MICHEAL CTERI STICS DETER MINED BY [employer]. IT HAS NOT BEEN CLEAR ED OR APPRO MANGO BY THE FOOD AND DRUG ADMIN ISTRA TION. THE FDA HAS DETER MINED THAT SUCH CLEAR ANCE OR APPRO LYDIA IS NOT NECES YOLANDA. Not Available [facility] ([facility]) [address] [place], [address], 08/31/2016 06:04:49 08/27/19 17 08/27/2016 CMP, serum or plasm a glucose, serum TNP mg/dL PLEAS E REFER TO THE FOLLO WING SPECI MEN FOR ADDIT IONAL LAB RESUL TS. SEE [id number] 67-0 Not Available [facility] ([facility]) [address] [place], [address], 08/31/2016 06:04:50 08/27/19 17 08/27/2016 CMP, serum or plasm a BUN TNP TEST NOT PERFO RMED Not Available [facility] ([facility]) [address] [place], [address], 08/31/2016 06:04:50 08/27/19 17 08/27/2016 CMP, serum or plasm a creatinine, serum TNP TEST NOT PERFO RMED Not Available [facility] ([facility]) [address] [place], [address], 08/31/2016 06:04:50 08/27/19 17 08/27/2016 CMP, serum or plasm a eGFR if nonafricn AM VOLUNTEER SERVICES COORDINATOR Not Available [facility] ([facility]) [address] [place], [address], 08/31/2016 06:04:50 08/27/19 17 08/27/2016 CMP, serum or plasm a eGFR if africn AM VOLUNTEER SERVICES COORDINATOR Not Available [facility] ([facility]) [address] [place], [address], 08/31/2016 06:04:50 08/27/19 17 08/27/2016 CMP, serum or plasm a BUN/creatini ne ratio VOLUNTEER SERVICES COORDINATOR Not Available [facility] ([facility]) [address] [place], [address], 08/31/2016 06:04:50 08/27/19 17 08/27/2016 CMP, serum or plasm a sodium, serum TNP TEST NOT PERFO RMED Not Available [facility] ([facility]) [address] [facility] [place], [address], 08/31/2016 06:04:50 08/27/19 17 08/27/2016 CMP, serum or plasm a potassium, serum TNP TEST NOT PERFO RMED Not Available [facility] ([facility]) [address] [facility], [place], [address], 08/31/2016 06:04:50 08/27/19 17 08/27/2016 CMP, serum or plasm a chloride, serum TNP TEST NOT PERFO RMED Not Available [facility] ([facility]) [address] [place], [address], 08/31/2016 06:04:50 08/27/19 17 08/27/2016 CMP, serum or plasm a carbon dioxide, total TNP TEST NOT PERFO RMED Not Available [facility] ([facility]) [address] [place], [address], 08/31/2016 06:04:50 08/27/19 17 08/27/2016 CMP, serum or plasm a calcium, serum TNP TEST NOT PERFO RMED Not Available [facility] ([facility]) [address] [place], [address], 08/31/2016 06:04:50 08/27/19 17 08/27/2016 CMP, serum or plasm a protein, total, serum TNP TEST NOT PERFO RMED Not Available [facility] ([facility]) [address] [place], [address], 08/31/2016 06:04:50 08/27/19 17 08/27/2016 CMP, serum or plasm a albumin, serum TNP TEST NOT PERFO RMED Not Available [facility] ([facility]) [address] [facility] [place], [address], 08/31/2016 06:04:50 08/27/19 17 08/27/2016 CMP, serum or plasm a globulin, total VOLUNTEER SERVICES COORDINATOR Not Available [facility] ([facility]) [address] [facility], [address], 08/31/2016 06:04:50 08/27/19 17 08/27/2016 CMP, serum or plasm a A/G ratio VOLUNTEER SERVICES COORDINATOR Not Available [facility] ([facility]) [address] [facility] [place], [address], 08/31/2016 06:04:50 08/27/19 17 08/27/2016 CMP, serum or plasm a bilirubin, total TNP TEST NOT PERFO RMED Not Available [facility] ([facility]) [address] [facility] [place], [address], 08/31/2016 06:04:50 08/27/19 17 08/27/2016 CMP, serum or plasm a alkaline phosphatase, S TNP TEST NOT PERFO RMED Not Available [facility] ([facility]) [address] [facility] [place], [address], 08/31/2016 06:04:50 08/27/19 17 08/27/2016 CMP, serum or plasm a AST (SGOT) TNP TEST NOT PERFO RMED Not Available [facility] ([facility]) [address] [facility] [place], [address], 08/31/2016 06:04:50 08/27/19 17 08/27/2016 CMP, serum or plasm a ALT (SGPT) TNP TEST NOT PERFO RMED Not Available [facility] ([facility]) [address] [facility] [place], [address], 08/31/2016 06:04:50 08/27/19 17 08/27/2016 lipid panel , serum cholesterol, total TNP mg/dL PLEAS E REFER TO THE FOLLO WING SPECI MEN FOR ADDIT IONAL LAB RESUL TS. SEE [id number] 67-0 Not Available [facility] ([facility]) [address] [place], [address], 08/31/2016 06:04:50 08/27/19 17 08/27/2016 lipid panel , serum triglyceride s TNP TEST NOT PERFO RMED Not Available [facility] ([facility]) [address] [place], [address], 08/31/2016 06:04:50 08/27/19 17 08/27/2016 lipid panel , serum HDL cholesterol TNP TEST NOT PERFO RMED Not Available [facility] ([facility]) [address] [place], [address], 08/31/2016 06:04:50 08/27/19 17 08/27/2016 lipid panel , serum VLDL cholesterol anne VOLUNTEER SERVICES COORDINATOR Not Available [facility] ([facility]) [address] [place], [address], 08/31/2016 06:04:50 08/27/19 17 08/27/2016 lipid panel , serum LDL cholesterol calc VOLUNTEER SERVICES COORDINATOR Not Available [facility] ([facility]) [address] [place], [address], 08/31/2016 06:04:50 08/27/19 17 08/27/2016 lipid panel , serum comment: VOLUNTEER SERVICES COORDINATOR Not Available [facility] ([facility]) [address] [place], [address], 08/31/2016 06:04:50 08/27/19 17 08/27/2016 lipid panel , serum LDL/HDL ratio VOLUNTEER SERVICES COORDINATOR Not Available [facility] ([facility]) [address] [place], [address], 08/31/2016 06:04:50 08/27/19 17 08/27/2016 testo stero ne, total , serum testosterone , serum TNP NG/dL PLEAS E REFER TO THE FOLLO WING SPECI MEN FOR ADDIT IONAL LAB RESUL TS. SEE 67-0 Not Available [facility] ([facility]) [address] [place], [address], 08/31/2016 06:04:51 08/27/19 17 08/27/2016 testo stero ne, total , serum comment: VOLUNTEER SERVICES COORDINATOR Not Available [facility] ([facility]) [address] [place], [address], 08/31/2016 06:04:51 08/27/19 17 08/30/2016 HSV (1+2) DNA, qual, PCR, unspe cifie d speci men hsv 1 KYLE NEGATI VE negati ve Not Available [facility] ([facility]) [address] [place], [address], 08/31/2016 06:04:51 08/27/19 17 08/30/2016 HSV (1+2) DNA, qual, PCR, unspe cifie d speci men hsv 2 KYLE NEGATI VE negati ve Not Available [facility] ([facility]) [address] [place], [address], 08/31/2016 06:04:51 08/27/19 17 08/27/2016 HbA1c (hemo globi n A1c), blood hemoglobin A1C TNP % PLEAS E REFER TO THE [facility] FOR ADDIT IONAL LAB RESUL TS. SEE 67-0 PRE-D IABET ES: 5.7 - 6.4 DIABE THU: >6.4 GLYCE RIDGE CONTR OL FOR ADULT S WITH DIABE THU: <7.0 Not Available [facility] ([facility]) [address] [place], [address], 08/31/2016 06:04:51 08/27/19 17 08/27/2016 dhea- sulfa te, serum DHEA-sulfate TNP ug/dL PLEAS E [facility] RESUL TS. SEE 67-0 Not Available [facility] ([facility]) [address] [place], [address], 08/31/2016 06:04:52 08/27/19 17 08/27/2016 TSH, ultra -sens itive , serum TSH TNP uIU/m L PLEAS E REFER TO THE [facility]ING SPECI MEN FOR ADDIT IONAL LAB RESUL TS. SEE 67-0 Not Available [facility] ([facility]) [address] [facility], [place], [address], 08/31/2016 06:04:52 08/27/19 17 08/27/2016 lh (lute inizi ng hormo ne), serum LH TNP mIU/m L PLEAS E REFER TO THE [facility] WING SPECI MEN FOR ADDIT IONAL LAB RESUL TS. ADULT FEMAL E: FOLLI CULAR PHASE 2.4 - 12.6 OVULA TION PHASE 14.0 - 95.6 LUTEA L PHASE 1.0 - 11.4 POSTM ENOPA USAL 7.7 - 58.5 SEE 67-0 Not Available [facility] ([facility]) [address] [facility], [place], [address], 08/31/2016 06:04:53 08/27/19 17 08/27/2016 FSH (foll icle- stimu latin g hormo ne), serum FSH TNP mIU/m L PLEAS E REFER TO THE [facility] SPECI MEN FOR ADDIT IONAL LAB RESUL TS. ADULT FEMAL E: FOLLI CULAR PHASE 3.5 - 12.5 OVULA TION PHASE 4.7 - 21.5 LUTEA L PHASE 1.7 - 7.7 POSTM ENOPA USAL 25.8 - 134.8 SEE 67-0 Not Available [facility] ([facility]) [address] [facility], [place], [address], 08/31/2016 06:04:53 08/27/19 17 08/27/2016 prola ctin, serum prolactin TNP NG/mL PLEAS E REFER TO THE [facility] SPECI MEN FOR ADDIT IONAL LAB RESUL TS. SEE 67-0 Not Available [facility] ([facility]) [address] [facility], [place], [address], 08/31/2016 06:04:53 08/27/19 17 08/27/2016 estra diol, serum estradiol TNP pg/mL PLEAS E REFER TO THE [facility] WING SPECI MEN FOR ADDIT IONAL LAB RESUL TS. ADULT FEMAL E: FOLLI CULAR PHASE 12.5 - 166.0 OVULA TION PHASE 85.8 - 498.0 LUTEA L PHASE 43.8 - 211.0 POSTM ENOPA USAL <6.0 - 54.7 PREGN JOSEPH 1ST TRIME STER 215.0 - >4300 .0 GIRLS (1-10 YEARS ) 6.0 - 27.0 SEE 83 67-0 MAHNAZ ECLIA METHO DOLOG Y Not Available [facility] ([facility]) [address] [facility], [place], [address], 08/31/2016 06:04:54 08/27/19 17 08/28/2016 cultu re, vagin al/re ctal, strep tococ cus group B strep gp B KYLE NEGATI VE negati ve [facility] FOR DISEA SE CONTR OL AND PREVE NTION (CDC) AND AMERI CAN CONGR ESS OF OBSTE TRICI ANS AND GYNEC OLOGI STS (ACOG ) GUIDE LINES FOR PREVE NTION OF PERIN ATAL GROUP B STREP TOCOC ANNE (GBS) DISEA SE SPECI FY CO-CO LLECT ION OF A VAGIN AL AND RECTA L SWAB SPECI MEN TO MAXIM IZE SENSI TIVIT Y OF GBS DETEC TION. PER THE CDC AND ACOG, SWABB ING BOTH THE LOWER VAGIN A AND RECTU M SUBST ANTIA LLY INCRE ASES THE YIELD OF DETEC TION MARQUES RED WITH SAMPL ING THE VAGIN A ALONE . PENIC ILLIN G, AMPIC ILLIN , OR CEFAZ ISABEL ARE INDIC ATED FOR INTRA PARTU M PROPH YLAXI S OF PERIN ATAL GBS COLON IZATI ON. REFLE X SUSCE PTIBI LITY TESTI NG SHOUL D BE PERFO RMED PRIOR TO USE OF CLIND AMYCI N ONLY ON GBS ISOLA THU FROM PENIC ILLIN -SURESH RGIC WOMEN WHO ARE CONSI DERED A HIGH RISK FOR ANAPH YLAXI S. TREAT MENT WITH VANCO MYCIN WITHO UT ADDIT IONAL TESTI NG IS WARRA NTED IF RESIS TANCE TO CLIND AMYCI N IS NOTED . Not Available [facility] ([facility]) [address] [facility], [place], [address], 08/31/2016 06:04:54 08/27/19 17 08/27/2016 proge stero ne, serum progesterone TNP NG/mL PLEAS E REFER TO THE [facility] WING SPECI MEN FOR ADDIT IONAL LAB RESUL TS. FOLLI CULAR PHASE 0.1 - 0.9 LUTEA L PHASE 1.8 - 23.9 OVULA TION PHASE 0.1 - 12.0 PREGN ANT FIRST TRIME STER 11.0 - 44.3 SECON D TRIME STER 25.4 - 83.3 THIRD TRIME STER 58.7 - 214.0 POSTM ENOPA USAL 0.0 - 0.1 SEE 088-3 67-0 Not Available [facility] ([facility]) [address] [facility], [place], [address], 08/31/2016 06:04:54 08/27/19 17 08/27/2016 speci men statu s repor t specimen status report TNP PLEAS E REFER TO THE [facility] WING SPECI MEN FOR ADDIT IONAL LAB RESUL TS. TEST: 76458 0 COMP. METAB OLIC PANEL (14) 34708 0 LIPID PANEL WITH LDL/H DL RATIO 69163 6 TESTO STERO NE, SERUM 83848 3 HEMOG LOBIN A1C 32803 0 [place] [address] 9 TSH 73952 3 LUTEI NIZIN G HORMO NE(LH ), S 07027 9 FSH, SERUM 46680 5 PROLA CTIN 76716 5 ESTRA DIOL 84961 7 PROGE STERO NE SEE 088-3 67-0 Not Available [facility] ([facility]) [address] [facility], [place], [address], 08/31/2016 06:04:55 08/27/19 17 08/28/2016 pap, IG + HPV, cervi anne HPV aptima NEGATI VE negati ve THIS TEST DETEC TS FOURT EEN HIGH- RISK HPV TYPES (16/1 8/31/ 33/35 /39/4 5/ 51/52 /56/5 8/59/ 66/68 ) WITHO UT DIFFE RENTI ATION . Not Available [facility] ([facility]) [address] [facility], [place], [address], 08/31/2016 16:15:16 08/27/19 17 08/31/2016 pap, IG + HPV, cervi anne diagnosis: COMMEN T NEGAT GELY FOR INTRA EPITH ELIAL LESEDE N AND MARIA L DIANA . THIS SPECI MEN WAS RESCR EENED PART OF OUR QUALI TY CONTR OL PROGR AM. Not Available [facility] ([facility]) [address] [facility], [place], [address], 08/31/2016 16:15:16 08/27/19 17 08/31/2016 pap, IG + HPV, cervi anne specimen adequacy: COMMEN T SATIS FACTO RY FOR EVALU ATION . ENDOC ERVIC AL AND/O R SQUAM OUS METAP LASTI C CELLS (ENDO CERVI ANNE COMPO NENT) ARE PRESE NT. Not Available [facility] ([facility]) [address] [facility], [place], [address], 08/31/2016 16:15:16 08/27/19 17 08/31/2016 pap, IG + HPV, cervi anne clinician provided ICD10: MARQUITA Chapa Z01.4 11 Z20.2 E28.2 Not Available [facility] ([facility]) [address] [facility], [place], [address], 08/31/2016 16:15:16 08/27/19 17 08/31/2016 pap, IG + HPV, cervi anne performed by: MARQUITA HARDY , CYTOT ECHNO LOGIS T (ASCP ) Not Available [facility] ([facility]) [address] [place], [address], 08/31/2016 16:15:16 08/27/19 17 08/31/2016 pap, IG + HPV, cervi anne QC reviewed by: GRIFFIN CASTELANOR Y CYTOT ECHNO LOGIS T (ASCP ) Not Available [facility] ([facility]) [address] [place], [address], 08/31/2016 16:15:16 08/27/19 17 08/31/2016 pap, IG + HPV, cervi anne . . Not Available [facility] ([facility]) [address] [facility], [place], [address], 08/31/2016 16:15:16 08/27/19 17 08/31/2016 pap, IG + HPV, cervi anne note: MARQUITA Chapa THE PAP SMEAR IS A SCREE SURAJ TEST DESIG EDNA TO AID IN THE DETEC TION OF DILCIA LIGNA NT AND MALIG NANT CONDI TIONS OF THE UTERI NE CERVI X. IT IS NOT A DIAGN OSTIC PROCE DURE AND SHOUL D NOT BE USED THE SOLE MEANS OF DETEC TING CERVI ANNE CANCE R. BOTH FALSE -POSI TIVE AND FALSE -NEGA TIVE REPOR TS DO OCCUR . Not Available [facility] ([facility]) [address] [facility], [place], [address], 08/31/2016 16:15:16 08/27/19 17 08/31/2016 pap, IG + HPV, cervi anne test methodology: MARQUITA Chapa THIS LIQUI D BASED THINP REP(R ) PAP TEST WAS SCREE EDNA WITH THE USE OF AN IMAGE GUIDE Orlando Hooker Not Available [facility] ([facility]) [address] [facility], [place], [address], 08/31/2016 16:15:16 Result Notes None recorded. Problems Name Problem SNOMED Code Status Onset Date Resolution Date Notes Provider Name and Address Organization Details Recorded Time No current problems or disability 285552799 Active Robert López null, [facility] 4 17:53:49 Polycystic ovaries Active 017 Philipp Vivas null, [facility] 7 15:48:21 Problem Notes None recorded. Procedures Surgical History Date Name Laterality Status Provider Name and Address Organization Details Recorded Time 7 Date of Last Pap Smear completed Lenore Banda MA [facility] 10/24/2019 10:57:16 5 Control Implant Removal completed Robert López [facility] 08/14/2014 13:20:38 3 Dilation and Curettage completed Lenore Banda MA [facility] 07/11/2014 15:11:26 Other completed Rima Vazquez MA [facility] 08/26/2016 14:55:46 Imaging Results None recorded. Procedure Notes None recorded. Medical Equipment None Reported. Allergies No known drug allergies Medications Name Sig Start Date Stop Date Status Note LastModified by Organization Details LastModified Time multivitamin tablet Take 1 tablet every day by oral route. 10/23 completed Not Available Not Available Not Available metformin 500 mg tablet Take 1 tablet twice a day by oral route. 10/23 completed Not Available Not Available Not Available fluconazole 150 mg tablet 08/26 completed Not Available Not Available Not Available metronidazol e 0.75 % (37.5 mg/5 gram) vaginal gel 08/26 completed Not Available Not Available Not Available metronidazol e 500 mg tablet 08/26 completed Not Available Not Available Not Available tramadol 50 mg tablet 08/26 completed Not Available Not Available Not Available bupropion HCl SR 100 mg tablet,12 hr sustained-re lease 08/26 completed Not Available Not Available Not Available lamotrigine 25 mg tablet 08/26 completed Not Available Not Available Not Available oxycodone-ac etaminophen 5 mg-325 mg tablet 08/26 completed Not Available Not Available Not Available lamotrigine 100 mg tablet 08/26 completed Not Available Not Available Not Available NuvaRing 0.12 mg-0.015 mg/24 hr vaginal Insert 1 vaginal ring every month by vaginal route. 08/26 completed Not Available Not Available Not Available Calcium with Vitamin D 600 mg-10 mcg (400 unit) tablet Take 1 tablet twice a day by oral route. 2019 active Not Available Not Available Not Avai lable Lo Loestrin Fe 1 mg-10 mcg (24)/10 mcg (2) tablet Take 1 tablet every day by oral route. 2019 active Not Available Not Available Not Avai lable 28 mg iron-800 mcg tablet Take 1 tablet every day by oral route. 2019 active Not Available Not Available Not Avai lable calcium 600 mg (as carbonate)-v itamin D3 20 mcg (800 unit) tablet Take 1 tablet twice a day by oral route for 30 days. 10/23 completed Not Available Not Available Not Available Classic 28 mg iron-800 mcg tablet active Not Available Not Available N ot Available Contrave 8 mg-90 mg tablet,exten ded release Take 2 tablets twice a day by oral route. 10/23 completed Not Available Not Available Not Available Slynd 4 mg (28) tablet Take 1 tablet every day by oral route. active Not Available Not Available No t Available Vitals Date Recorded Body height Body mass index (BMI) Body weight Provider Name and Address Organization Details Last Updated DateTime 10/24/2019 170.18 cm 35.2 kg/m2 516194.28 g Lenore Banda [place] [facility] 10/24/2019 10:54:48 Date Recorded Body height Provider Name an d Address Organization Details Last Updated DateTime 01/04/2020 170.18 cm Roxi wellington [place] [facility] 01/04/2020 16:06:53 Date Recorded Body height Body mass index (BMI) Body weight Systolic blood pressure Diastolic blood pressure Provider Name and Address Organization Details Last Updated DateTime 04/17/2014 170.18 cm 30.4 kg/m2 20991.91 978 g 98 mm[Hg] 64 mm[Hg] RAVINDER Crowder - [facility] 4 12:07:08 Date Recorded Body height Body mass index (BMI) Body weight Systolic blood pressure Diastolic blood pressure Provider Name and Address Organization Details Last Updated DateTime 07/11/2014 170.18 cm 27.7 kg/m2 59306.84 949 g 104 mm[Hg] 66 mm[Hg] Lenore Banda MA [facility] 5 15:07:21 Date Recorded Body height Body weight Body mass index (BMI) Systolic blood pressure Diastolic blood pressure Provider Name and Address Organization Details Last Updated DateTime 08/26/2016 170.18 cm 49784.36 g 33.7 kg/m2 102 mm[Hg] 70 mm[Hg] Rima Vazquez [place] - [facility] 7 15:03:49 Social History Question Answer Notes LastModified by Organizat ion Details LastModified Time Tobacco Smoking Status Never Smoker Lenore Banda MA [facility], [facility] 04/17/2014 12:07:08 Do You Have An Advance Directive? No Information not available 08/26/2016 What Is Your Level Of Alcohol Consumption? None Information not available 08/26/2016 Is Blood Transfusion Acceptable In An Emergency? Yes Information not available 08/26/2016 What Is Your Level Of Caffeine Consumption? Moderate Information not available 08/26/2016 How Much Tobacco Do You Chew? None Information not available 08/26/2016 Are You Currently Employed? No Information not available 08/26/2016 What Type Of Diet Are You Following? REGULAR Information not available 08/26/2016 Which Illicit Or Recreational Drugs Have You Used? Marijuana Marijuana Information not available 10/24/2019 Do You Or Have You Ever Used E-cigarettes Or Vape? 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 With Others Information not available 08/26/2016 What Was The Date Of Your Most Recent Tobacco Screening? 01/04/2020 Information not available 01/04/2020 How Many Children Do You Have? 2 Information not available 10/24/2019 Performs Monthly Self-breast Exam? No Information not available 08/26/2016 Do You Use Protection During Sex? Usually Information not available 10/24/2019 What Is Your Relationship Status? Information not available 08/26/2016 Seat Belts Used Routinely Yes Information not available 08/26/2016 Are You Sexually Active? Yes Information not available 08/26/2016 Do You Or Have You Ever Used Smokeless Tobacco? Never Used Smokeless Tobacco Information not available 10/24/2019 How Much Tobacco Do You Smoke? No Information not available 10/24/2019 General Stress Level Medium Information not available 08/26/2016 Do You Use Sunscreen Routinely? Yes Information not available 08/26/2016 On What Date Was Tobacco Cessation Counseling Provided? 01/04/2020 Information not available 01/04/2020 How Many Years Have You Smoked Tobacco? 0 Information not available 10/24/2019 Sex: Unknown Functional Status Question Answer Note LastModified by Organizat ion Details LastModified Time What is your exercise level? Occasional Information not available 08/26/2016 Mental Status None recorded. Family History Relationship Description Onset Age of this Age Resolved Age Notes LastModified by Organization Details LastModified Time Paternal Grandmother Carcinoma in situ of ovary 60 [email or web address] Not available 07/11 15:13:02 Paternal Aunt Carcinoma in situ of breast ovaria n cancer [email or web address] Not available 07/11/2014 15:13:02 Medical History Condition Response Coronary Artery Disease N Kidney Cyst N Blood Diseases N Hyperthyroidism N Blood disorders N Blood Transfusion N MRSA N Emphysema N Depression N COPD N Blood Clots N Pneumonia N Premature N Peripheral Arterial Disease N Edema N TIA N Headaches/Migraines N Anxiety Disorder N Obesity N Polyps N Infertility N Acid Reflux (GERD) N Hematuria N Stroke N Neck Injury N Polio N Hospital Admission other than N Neurologic Disorder N Other Sleep Disorders N Rheumatoid Arthritis N Fibromyalgia N Abdominal Aortic Aneurysm Repair N Kidney Disease N Heart Conditions N Heart Disease/Heart Problems N Hospitalizations N Brain Tumors N Acne N Skin Problems N Eating Disorder N Meningitis N Constipation N Tuberculosis N Cerebral Palsy N Myocardial Infarction N Asthma N Substance Abuse N Peripheral Vascular Disease N Vertigo N Sleep Disorder N Cirrhosis N Pulmonary Embolism N Chicken Pox N Hematologic Disease N Flomax Use Past or Present N Anxiety/Depression N Thyroid Disease N Colon Cancer N Lung Disease N Glaucoma N Developmental or Behavioral Disorders N Bipolar N Pacemaker N Diverticulitis/Diverticulosis N Orthopedic Problems N Anesthesia Complications N Orthotics N Head Injury/Concussion N Congenital Anomalies N Banda Bite N Chronic Kidney Disease N Endometriosis N Liver Disease N Schizophrenia N Dialysis N Speech Delay N Chronic Obstructive Pulmonary Disease N Parkinson's Disease N Thyroid Problems N GI Problems N Developmental Delay N Anemia N Multiple Sclerosis N Immune System Disorder N Colon Polyps N Heart Attack ([place]) N Diabetes N Cardiomyopathy N Blood Transfusions N Heart Problems/Murmur N Eye Trauma N Congestive Heart Failure (CHF) N Valvular Heart Disease N Hyperlipidemia N Double Vision N Abuse/Domestic Violence N Hepatitis B N Lupus N Epilepsy/Seizures N Reflux/GERD N Aneurysm N Heart Disease N Bronchitis N Pre-Eclampsia N Hypertension N Heart Failure N Other N Gout N High Blood Pressure N Atrial Fibrillation N Kidney Stones N Head Trauma/Injury N Congenital Heart Disease N Spine Problems N Gastrointestinal Disease N Lung Mass N Sinusitis N Obstructive Sleep Apnea N Muscle, Joint, or Bone Problems N Autoimmune disease N Vision or Eye Problems N Arthritis N Blood Clot N Cancer N Seasonal allergies N Leg or Foot Ulcers N Raynaud's Disease N Aortic Aneurysm N Arrhythmia N Headaches N Heart Problems N Ambloypia N Ear or Hearing Problems N Hyperparathyroidism N Migraines N Artificial Joints N Kidney or Bladder Problems N NSAID Use N Encephalitis N PTSD N Ulcers N Prostate Hypertrophy N Bleeding Disorder N AIDS/HIV N Urinary Tract Infection N Back Problems N Allergies N Atrial Flutter N GERD/Reflux N Hepatitis N Autism Spectrum Disorder (ASD) N Breast Cancer N Hernia N Hypothyroidism N Breast Problem N Genitourinary Disease N Deep Vein Thrombosis N Varicose Veins N Cystic Fibrosis N Hearing Loss N Developmental Problems N Carotid Disease N Vitamin D Deficiency N ADHD N Bladder or Kidney Problems N High Cholesterol N [place] N Valvular Abnormalities N Psychiatric/Mental Health Condition N Organ Transplant N Foot Deformity N Allergies/Hayfever N Dyslipidemia N Hyponatremia N Diabetic Eye Disease N Osteoporosis/Osteopenia N Back Pain N Proteinuria N Mental Illness N Neurological Problems N Ovarian Cancer N Bedwetting N Seizures/Epilepsy N Kidney Failure N Ocular trauma N Diverticulitis N Dementia N Sleep Apnea N Mental Problems N Warfarin Management N Osteoporosis N Gynecological History Statement/Question Response Abnormal Pap Y Flow Moderate STIs/STDs N HPV Vaccine Y Duration of Flow (days) 4 Age at Menarche 13 Current Control Method None Age at First Child 23 Frequency of Cycle (Q days) 30 Sexually Active? Y Menses Monthly Y Date of Last Pap Smear 08/26/2016 Sexual Problems? N LMP Approximate Desired Control Method BCPs Obstetrics History GPAL:G 3 P 2 0 1 2 Type Value Multiple Births 0 Full Term 2 Induced 0 Spontaneous 1 Premature 0 Living 2 Ectopics 0 Total 3 Past Encounters Encounter ID Performer Location Encounter Start Date Encounter Closed Date Diagnosis/Indication Diagnosis SNOMED-CT Code Diagnosis ICD10 Code Diagnosis Note [id number] RAVINDER Crowder ([employer]) [address] [place] [address] [id number] 04/17/2014 11:05:47 04/17/2014 13:22:08 [id number] MAGDA Maurice ([employer]) [address] [place] [address] [id number] 07/11/2014 14:28:16 07/11/2014 16:59:25 Subcutaneous contraceptive implant present [id number] Philipp Monaco ([employer]) [address] [place] [address] [id number] 08/26/2016 14:23:53 08/27/2016 12:45:10 Gynecologic examination 79265099 Z01.411 Exposure t o sexually transmissible disorder 207202300 Z20.2 Polycystic ovaries 97219 008 E28.2 Obese 201029137 E66.9 Obesity 800468900 E66.9 Family sam nning surveillance 972081008 Z30.09 [id number] Philipp Monaco ([employer]) [address] [place] [address] [id number] 10/24/2019 10:45:02 10/25/2019 09:58:18 Family planning surveillance 367782707 Z30.09 slynd while nursing, lo loestrin after wait for tubal post coviddecli anamaria flu vaccine Female sterilization 608 06035 Z30.2 papers when post covid stay on pills slynd then lo loestrin [id number] Philipp Monaco ([employer]) [address] [place] [address] [id number] 0 01/04/2020 08:27:12 01/05/2020 07:49:01 Family planning surveillance 645178590 Z30.09 slynd while nursing, lo loestrin after wait for tubal post coviddecli anamaria flu vaccine Health Concerns Section Related Observation LastModified by Organization Detai ls LastModified Time None Recorded Concern Status LastModified by Organization Details LastModified Time None Recorded Advance Directives Directive N: Payers Encounter Date Sequence Insurance Name Policy Number Policy Chavez Covered Member ID Chavez Member ID Guarantor Name 04/17/2014 1 [employer] [employer] [place] [id number] Nawaf Migueld [id number] Swetha Deale 07/11/2014 1 [employer] [employer] [place] [id number] Alejandro Greene [id number] Swetha Deale 07/11/2014 2 [place]: [facility] [id number] Swetha Deale 08/26/2016 1 [employer] [place] [id number] Alejandro Greene [id number] Swetha Deale 08/26/2016 2 [place]: [facility] Swetha Mijares [id number] [facility] 10/24/2019 1 [employer] [employer] [place] [id number] Alejandro Greene [id number] [facility] 10/24/2019 2 [place]: [facility] [id number] [facility] 01/04/2020 1 [employer] [employer] [place]) [id number] Alejandro Greene [id number] Swetha Deale Notes Date Note Type Note Provider Name and Address Organization Details Recorded Time 08/26/2016 text/html Annual GYNReport ed bypatient.Menstrual cycle:Severe dysmenorrhea;Menorr hagia;Bleeding lasts more than 7 days;Irregular cycle intervals Urinary symptoms:No hematuria; No incontinence Vulva:No genital lesion Vagina:Normal vaginal discharge Breast:No breast pain; No breast lump; No nipple discharge Current Contraception:Monog amous relationship; control not practiced; Wants to discuss contraceptive options Sexual complaints:No sexual complaints; No pain during intercourse; Normal libido Menopausal Symptoms:No menopausal symptoms; Normal vaginal lubrication Psychological symptoms:No depression; No anxiety; No PMDD Preventive measures:Encourage self breast examination; Encourage regular exercise; Encourage no tobacco use 26 yo WF here for annual wwe Philipp ramirez, [place] - [facility] 08/26/2016 18:28:02 10/24/2019 text/html OCP CheckReporte d bypatient.Associate d Symptoms:regular menses; no BTB menses; no side effects 29yo WF [id number] here for oc refill Philipp ramirez, [place] - [facility] 10/24/2019 11:15:43 01/04/2020 text/html OCP CheckReporte d bypatient.Associate d Symptoms:regular menses; no BTB menses; no side effects 29yo WF [id number] here for oc refill Philipp ramirez, [place] - [facility] 01/04/2020 16:14:21 OBGyn Episode Ob Episode Information Episode Created Date Number of Fetuses Patient Bloodtype Patient rh Status Prepregnancy Weight lbs Domestic Partner Domestic Partner Phone Father Name Bar Pilot Status 10/24/19 20 1 CLOSED Fetus Data First Name Last Name Admitted to NICU Weight (g) Sex Living Outcome Pediatric Complications Fetus ID Race Codes Race Delivery Type 3259.96 5704 M Full Term [id number] Vaginal Satish Calculation Initial Satish Date Initial Exam Date Initial Exam Provider Initial Ultrasound Date Last Menstrual Period Date Ultra Sound Weeks Gestation 0 Eighteen To Twenty Week Satish Update Ultra Sound Date Fundal Height At Umbil Quickening Date Ultra Sound Latest Weeks Gestation Final Satish Confirmed By Final Satish Confirmed Date Final Satish Date Ultra Sound Latest Days Gestation 0 0 Menstrual History Last Menstrual Date Menses Monthly On Bcp Conception Prior Menses Frequency Hcg Plus Date Menarche Onset Age Delivery Information Delivery Date Delivery Type Labor Anesthesia Weeks Gestation Incision Type Labor Labor Length Hrs Delivered By Post Complications Tubal Sterilization Discharge Date Comments 9 Regional-Ep idural 39 tabby nevarez m delivered Discharge Information Feeding Method Contraceptive Method Maternal HG B and HCT Levels Ob Episode Information Episode Created Date Number of Fetuses Patient Bloodtype Patient rh Status Prepregnancy Weight lbs Domestic Partner Domestic Partner Phone Father Name Bar Pilot Status 10/24/19 20 1 CLOSED Fetus Data First Name Last Name Admitted to NICU Weight (g) Sex Living Outcome Pediatric Complications Fetus ID Race Codes Race Delivery Type , Spontane ous [id number] Satish Calculation Initial Satish Date Initial Exam Date Initial Exam Provider Initial Ultrasound Date Last Menstrual Period Date Ultra Sound Weeks Gestation 0 Eighteen To Twenty Week Satish Update Ultra Sound Date Fundal Height At Umbil Quickening Date Ultra Sound Latest Weeks Gestation Final Satsih Confirmed By Final Satish Confirmed Date Final Satish Date Ultra Sound Latest Days Gestation 0 0 Menstrual History Last Menstrual Date Menses Monthly On Bcp Conception Prior Menses Frequency Hcg Plus Date Menarche Onset Age Delivery Information Delivery Date Delivery Type Labor Anesthesia Weeks Gestation Incision Type Labor Labor Length Hrs Delivered By Post Complications Tubal Sterilization Discharge Date Comments 3 8 Discharge Information Feeding Method Contraceptive Method Maternal HG B and HCT Levels Ob Episode Information Episode Created Date Number of Fetuses Patient Bloodtype Patient rh Status Prepregnancy Weight lbs Domestic Partner Domestic Partner Phone Father Name Bar Pilot Status 08/27/19 17 1 CLOSED Fetus Data First Name Last Name Admitted to NICU Weight (g) Sex Living Outcome Pediatric Complications Fetus ID Race Codes Race Delivery Type [phone] [phone] M Full Term [id number] Vaginal Satish Calculation Initial Satish Date Initial Exam Date Initial Exam Provider Initial Ultrasound Date Last Menstrual Period Date Ultra Sound Weeks Gestation 0 Eighteen To Twenty Week Satish Update Ultra Sound Date Fundal Height At Umbil Quickening Date Ultra Sound Latest Weeks Gestation Final Satish Confirmed By Final Satish Confirmed Date Final Satish Date Ultra Sound Latest Days Gestation 0 0 Menstrual History Last Menstrual Date Menses Monthly On Bcp Conception Prior Menses Frequency Hcg Plus Date Menarche Onset Age Delivery Information Delivery Date Delivery Type Labor Anesthesia Weeks Gestation Incision Type Labor Labor Length Hrs Delivered By Post Complications Tubal Sterilization Discharge Date Comments 4 Regional-Ep idural 40 false Discharge Information Feeding Method Contraceptive Method Maternal HG B and HCT Levels
--- NOTE | 2024-08-25 06:41 | WPDANESEPPF ---
Anes - Initial Pre Proc Eval Procedure: Operation Date: 08/25/24 07:30 Proposed Procedures p Robotic Assisted Total Vaginal Hysterectomy with Bilateral Salpingectomy - Maury Lara MD Date/Time: 08/25/24 06:41 Surgeon: Maury Lara MD Pre Op Diagnosis: failed ablation, pelvic congestion, Patient Data Age: 34 Gender: F Height: 1.7 m Weight: 82.72 kg Allergies Allergy/AdvReac Type Severity Reaction Status Date / Time codeine Allergy Unknown Vomiting Verified 08/25/24 06:19 latex Allergy Rash Verified 08/25/24 06:19 hydrocodone AdvReac Intermediate VOMITING Verified 08/25/24 06:19 Home Medications ?Medication ?Instructions ?Recorded ?Confirmed ?Type ketorolac 10 mg tablet 10 mg PO QID 5 days #20 tabs 03/05/23 08/25/24 Rx Patient hx anesthesia problems: none Family hx anesthesia problems: none Results Review: All pre-operative results and documents have been reviewed as part of the pre-operative evaluation. [facility] Past Medical History Medical History (Updated 08/25/24 @ 06:41 by Maury Lynch MD) Marijuana abuse Anxiety Surgical History Surgical History (Updated 08/25/24 @ 06:42 by Maury Lynch MD) H/O laparoscopy H/O nasal septoplasty History of cholecystectomy Family History Family History Grandparent Hypertension Family history of malignant neoplasm of ovary Social History Social History (Updated 08/25/24 @ 06:42 by Maury Lynch MD) Smoking status: Former smoker Second hand tobacco smoke exposure: No Smoking end date: 07/29/24 Alcohol intake: never Substance use: former Substance use type: marijuana Other substance usage details: daily Living arrangements: with family Additional living arrangements comments: and children Spiritual care concerns: No Anes - Eval Final PreProcedure Day of Procedure 08/25/24 06:41 Patient weight: overweight Heart: regular rate and rhythm Lungs: clear to auscultation Airway: Mallampati scale class II Neurological: alert and oriented Last oral intake: >/= 8 hours ASA classification: II Emergent: no Anesthetic plan: proceed Anesthesia type and monitoring: general ETT and standard monitoring Results Review: All pre-operative results and documents have been reviewed as part of the pre-operative evaluation. Informed Consent: The patient's anesthetic plan and its attendant risks and benefits were discussed with the patient/family/POA. Questions were solicited and answers provided to the satisfaction of the patient/family/POA.
[2024-08-25] MEDS: SCOPOLAMINE 1 MG PATCH 1 PATCH TRANSDERM (06:50)
[2024-08-25] MEDS: KETOROLAC 15 MG/ML VIAL (*BKC) IV PUSH (06:51)
[2024-08-25] MEDS: ACETAMINOPHEN 500 MG TABLET 1000 MG PO ×3 (06:51→18:02)
[2024-08-25] MEDS: LACTATED RINGERS 1,000 ML 30 ML IV CONT ×2 (06:52→08:40)
[2024-08-25 06:58] LABS: BEDSIDEPREGUCG Negative (Negative)
--- NOTE | 2024-08-25 07:05 | WPDHPUPDATE1 ---
History and Physical Update Update Date/Time: 08/25/24 07:05 History and Physical has been reviewed, including an updated exam of the patient. There are NO changes in the patient's condition. Risks, benefits, and alternatives have been discussed and questions answered. Patient agrees to proceed with procedure.
[2024-08-25] MEDS: ceFAZolin 2 GM/D5W 50 ML 2 GM/50 ML BAG IVPB (07:28)
--- NOTE | 2024-08-25 08:26 | P.OP_ITS ---
Procedure Note - Detailed Date of Procedure 08/25/24 Pre-op Diagnosis failed ablation, pelvic congestion, Post-op Diagnosis Same Procedure Performed Robotic total vaginal hysterectomy and bilateral salpingectomy Surgeon Maury Lara MD Anesthesia General Indications 34-year-old female with pelvic pain uterus excessive bleeding Findings Markedly enlarged uterus. Normal-appearing ovaries and tubes. Description of Procedure Patient was prepped draped in the normal sterile fashion placed in dorsal lithotomy position. Under excellent general endotracheal anesthesia weighted speculum placed in posterior fornix vagina. Anterior lip of the cervix grasped with single-tooth tenaculum. Uterus sounded to 11cm. Serial dilatation fragmented performed followed by passage of the 10. REBECA and the number 3 cold cup. Next the 16 Marshallese catheter placed in the bladder drained of clear urine. Weighted speculum was removed the gloves were changed. A supraumbilical incision made the Veress needle passed in the abdomen. Abdomen filled with CO2 gas [id number]. The 8mm trocar advanced in the abdomen. Downside visualized no injury seen. Patient placed in Trendelenburg and left and right lateral quadrant incision made. 8mm trocars advanced under direct visualization assuring no injury. Right upper quadrant incision made the 8mm trocars advanced under direct visualization assuring no injury. The robot was docked. Attention was turned to the console. The left round ligament grasped, burned, cut. Anteriorly a bladder flap was formed by sharply dissecting the peritoneum and reflecting the bladder caudally away from the cervix to the opposite round ligament which was clamped, burned, cut. Next the left fallopian tube was sharply dissected away from the ovarian complex and left it is ovarian uterine origin. In similar fashion the right fallopian tube was sharply dissected away from the ovary and left it attached to its uterine origin. Next the utero- ovarian ligament was skeletonized to conserve the left ovary this was clamped, burned, cut and brought to level of previously cut round ligament. In similar fashion conserving the right ovary, the utero-ovarian ligament was clamped, b urned, cut brought to level of previous cut round ligament. The cardinal broad ligaments on the left were then serially skeletonized clamping burning cutting and a hugging the cervix uterus until the tortuous large blood vessels were noted. These were individually clamped, burned, cut. In similar fashion on the right the cardinal broad ligaments were serially skeletonized clamping burning cutting and bringing this down the lateral edge of the uterus until the large tortuous vessels were seen on the right these were individually clamped, burned, cut. Blanching the uterus was noted a colpotomy incision was made. Cervix uterus and tubes removed through the vagina. The vagina then closed continuous running 0V lock from lateral edge to lateral edge back to the midline. Irrigation undertaken to clear and hemostasis was assured. Blood loss estimated 25cc. The robot was undocked. The gas removed from the abdomen and the trocars removed. The incisions closed with 4 Monocryl and glue. Patient was moved to recovery in satisfactory condition. All sponge, needle, instrument counts were correct. There were no immediate complications noted Estimated Blood Loss 25 Drains No Packing No Pathology Yes (Uterus cervix and tubes) Complications No immediate complications Condition Stable Disposition PACU
--- NOTE | 2024-08-25 08:31 | PM.DS ---
DS: Admitting Diagnosis Discharge Date 08/26/2024 Admitting Diagnosis Pelvic pain/uterine prolapse DS: Discharge Diagnosis Discharge Diagnosis (1) Pelvic pain: Code(s): R10.2 - Pelvic and perineal pain Status: Acute (2) Uterine prolapse: Code(s): N81.4 - Uterovaginal prolapse, unspecified Status: Acute DS: Summary Hospital Course Reason for hospitalization: The patient was admitted for robotic total vaginal hysterectomy bilateral salpingectomy on 08/25/2024. Hospital Course: Patient's hospital course unremarkable. She remained afebrile. She was up, voiding without difficulty, eating regular diet, ambulating, and generally was without complaints. Time Spent with Patient Time attestation: Total time spent providing and/or coordinating discharge services: Exam Const: General: cooperative, healthy appearing and comfortable Nutritional Appearance: average body habitus Orientation/consciousness: oriented to person, oriented to place and oriented to time HENMT: Head: normal to inspection Resp: Effort & Inspection: normal respiratory effort Cardio: Rate: regular rate Rhythm: regular rhythm Heart sounds: S1 normal heart sound present and S2 normal heart sound present GI: Inspection: normal to inspection and incision (Wounds are clean dry and intact) DS: Data Data Completed and Pending Pending studies at discharge: Pending at discharge 08/25/24 08:24 Surgical [PTH] Routine Labs on day of discharge: Labs from last 24 hours 08/25/24 06:10 POC Urine HCG, Qual Negative Discharge Plan Discharge Patient Disposition: Home, Self-Care Patient Language: Mohawk Stand Alone Forms: General Discharge Instructions Follow-up/Referrals: Maury Solorzano MD [Physician] - Discharge Medications: New oxycodone-acetaminophen [Endocet] 5-325 mg tablet 1 tablet PO Q4H PRN (Reason: pain) Qty: 20 0RF No Action ketorolac 10 mg tablet 10 mg PO QID 5 Days Qty: 20 0RF
[2024-08-25] MEDS: ONDANSETRON INJ 4 MG/2 ML VIAL IV PUSH (09:11)
[2024-08-25] MEDS: diphenhydrAMINE HCl INJ 50 MG/ML VIAL 25 MG IV PUSH (09:13)
[2024-08-25] MEDS: fentaNYL CITRATE INJ (*CRX) 100 MCG/2 ML VIAL 25 MCG IV PUSH (09:20)
[2024-08-25] MEDS: ENOXAPARIN 40 MG/0.4 ML SYRINGE SUB-Q (10:23)
[2024-08-25] MEDS: DEXTROSE 5%/LACTATED RINGERS 1,000 ML 125 ML IV CONT (10:23)
[2024-08-25] MEDS: DOCUSATE SODIUM 100 MG CAPSULE PO ×2 (10:23→18:02)
[2024-08-25] MEDS: SIMETHICONE 80 MG TAB.CHEW PO ×2 (12:00→18:02)
[2024-08-25] MEDS: KETOROLAC 30 MG/ML VIAL (*BKC) IV PUSH ×2 (12:00→18:02)
[2024-08-25] MEDS: oxyCODONE HCL (*CRX) 5 MG TAB IR PO (21:17)
[2024-08-26] MEDS: ACETAMINOPHEN 500 MG TABLET 1000 MG PO ×2 (00:30→07:43)
[2024-08-26] MEDS: KETOROLAC 30 MG/ML VIAL (*BKC) IV PUSH (00:30)
[2024-08-26 00:43] VITALS: BP 107/60; PULSE 66; RESP 14; TEMP 36.8; O2SAT 100
[2024-08-26 04:16] VITALS: BP 115/75; PULSE 83; RESP 14; TEMP 36.9; O2SAT 100
[2024-08-26 05:46] LABS: Basophils Percent Auto 0.4 % (0.2-1.2); Eosinophils Absolute Auto 0.1 K/mm3 (0-0.3); Eosinophils Percent Auto 0.6 % (0-4.4); Hematocrit 37.8 % (37.0-47.0); Hemoglobin 12.1 g/dL (12.0-15.0); Immature Granulocyte Absolute 0.03 K/mm3 (0.00-0.031); Immature Granulocyte Percent A 0.3 % (0-0.5); Lymphocytes Absolute Auto 2.99 K/mm3 (0.9-3.2); Lymphocytes Percent Auto 29.3 % (18.3-44.2); Mean Corpuscular Hemoglobin 28.8 pg (26-34); Mean Platelet Volume 11.5 fl (7.4-10.4); Monocytes Absolute Auto 0.8 K/mm3 (0.1-0.6); Monocytes Percent Auto 7.5 % (2.6-8.5); Neutrophils Absolute Auto 6.3 K/mm3 (1.3-6.7); Neutrophils Percent Auto 61.9 % (45.5-73.1); Platelet Count Result 196 k/mm3 (150-375); Red Cell Distribution Width 12.1 % (11.5-14.5); White Blood Count 10.2 K/mm3 (4.5-10.0)
[2024-08-26] MEDS: SIMETHICONE 80 MG TAB.CHEW PO (07:43)
[2024-08-26] MEDS: DOCUSATE SODIUM 100 MG CAPSULE PO (07:43)
[2024-08-26] MEDS: IBUPROFEN 600 MG TABLET PO (07:43)
[2024-08-26 08:15] VITALS: BP 108/70; PULSE 69; RESP 16; TEMP 36.7; O2SAT 100
--- NOTE | 2024-08-26 09:44 | P.PNOB_ITS ---
OFFICE ADMINISTRATION - A/P Assessment and plan (1) Pelvic pain: Code(s): R10.2 - Pelvic and perineal pain Status: Acute Assessment and Plan: A: POD#1 s/p robotic assisted TVHBS, doing well. P: Home to f/u 2 weeks. Postoperative Procedures: Procedures Operation Date: 08/25/24 07:30 Actual Procedure Side Surgeon p Robotic Assisted Total Vaginal Hysterectomy with Bilateral Salpingectomy Bilateral Maury Lara MD Time Spent With Patient Time with patient: less than 15 minutes OFFICE ADMINISTRATION- PN:Subj Post-Op Subjective Date/time seen: 08/26/24 09:44 Interval history: Pain OK. Tolerating diet. Voiding. Would like to go home. Exam 2 Narrative: AVSS I/O OK ABD soft, nontender. Incisions c/d/i. EXT nontender OFFICE ADMINISTRATION - PN: Obj Data Vital Signs Vital Signs: Vital Signs - 24 hr 08/25/24 10:00 08/25/24 15:47 08/25/24 20:25 Temperature 36.4 C 36.6 C 37.0 C Pulse Rate 82 67 87 Respiratory Rate 16 16 14 Blood Pressure 110/77 119/75 108/72 Pulse Oximetry 96 100 08/26/24 00:43 08/26/24 04:16 Temperature 36.8 C 36.9 C Pulse Rate 66 83 Respiratory Rate 14 14 Blood Pressure 107/60 115/75 Pulse Oximetry 100 100 Intake/Output Intake/Output: Intake & Output 08/23/24 08/24/24 08/25/24 08/26/24 23:59 23:59 23:59 23:59 Intake Total 2650 800 Output Total 2030 Balance 620 800 Meds/Results Medications: Active Medications Generic Name Dose Route Start Last Admin Trade Name Freq PRN Reason Stop Dose Admin Acetaminophen 1,000 mg 08/25/24 12:00 08/26/24 07:43 Acetaminophen 500 Mg Tablet PO 1,000 mg Q6HR NARGIS Administration Docusate Sodium 100 mg 08/25/24 09:49 08/26/24 07:43 Docusate Sodium 100 Mg Capsule PO 100 mg BID NARGIS Administration Enoxaparin Sodium 40 mg 08/25/24 09:49 08/25/24 10:23 Enoxaparin 40 Mg/0.4 Ml Syringe SUB-Q 40 mg DAILY NARGIS Administration Ibuprofen 600 mg 08/26/24 06:00 08/26/24 07:43 Ibuprofen 600 Mg Tablet PO 600 mg Q6HR NARGIS Administration Naloxone HCl 0.1 mg 08/25/24 09:49 Naloxone Hcl 0.4 Mg/Ml Vial IV PUSH Q2M PRN Respiratory rate less than 10 Ondansetron HCl 4 mg 08/25/24 09:49 Ondansetron Inj 4 Mg/2 Ml Vial IV PUSH Q6H PRN Nausea And Vomiting Oxycodone HCl 5 mg 08/25/24 20:37 08/25/24 21:17 Oxycodone Hcl (*Crx) 5 Mg Tab Ir PO 5 mg Q4H PRN Administration Pain Rated 7-10 Simethicone 80 mg 08/25/24 12:00 08/26/24 07:43 Simethicone 80 Mg Tab.Chew PO 80 mg TIDWM NARGIS Administration Labs 08/26/24 04:08 Labs: Laboratory Results - last 24 hr 08/26/24 04:08 WBC 10.2 H RBC 4.20 Hgb 12.1 Hct 37.8 MCV 90.0 MCH 28.8 MCHC 32.0 RDW 12.1 Plt Count 196 MPV 11.5 H Immature Gran % (Auto) 0.3 Neut % (Auto) 61.9 Lymph % (Auto) 29.3 Grady % (Auto) 7.5 Eos % (Auto) 0.6 Baso % (Auto) 0.4 Lymph # (Auto) 2.99 Grady # (Auto) 0.8 H Eos # (Auto) 0.1 Baso # (Auto) 0.0 Abs Immat Gran (auto) 0.03 Absolute Neuts (auto) 6.3 Absolute Nucleated RBC 0.000 Nucleated RBC % 0.0
== END 2024-08-26 11:50 | disposition home or self-care (01) ==
LOC: ANHSURGERY 07:05 → ANHOB2 09:51
PROVIDERS: PCP Family Medicine; Visit Provider Obstetrics & Gynecology
PROC: (CPT 58552; principal; 2024-08-25 07:30)
DX: N80.03 Adenomyosis of the uterus (principal); F41.9 Anxiety disorder, unspecified; F12.90 Cannabis use, unspecified, uncomplicated; Z98.890 Other specified postprocedural states; Z90.49 Acquired absence of other specified parts of digestive tract; Z87.891 Personal history of nicotine dependence; Z80.41 Family history of malignant neoplasm of ovary
CPT/HCPCS: 58552; S2900; 36415; 85025; 88307; 99199; A9270; J0690; J1100; J1171; J1200; J1650; J1885; J2003; J2250; J2405; J2704; J3010; J7030; J7120; J7121

== ENCOUNTER 2025-03-05 10:44 | Outpatient (CLI) | payer OTHER, SELFPAY ==
[2025-03-05 11:25] LABS: Anion Gap 7 mmol/L (4-12); Blood Urea Nitrogen 13 mg/dL (7-17); Calcium 9.0 mg/dL (8.4-10.2); Carbon Dioxide 27 mmol/L (22-30); Chloride 102 mmol/L (98-107); Cholesterol 143 mg/dL (0-200); Estimated Glomerular Filt Rate > 60; Glucose 94 mg/dL (65-110); HDL Direct 55 mg/dL; Potassium 4.0 mmol/L (3.4-5.0); Sodium 136 mmol/L (137-145); Triglycerides 84 mg/dL (<150)
[2025-03-05 12:00] LABS: Thyroid Stimulating Hormone 0.567 uIU/mL (0.465-4.680)
[2025-03-07 16:08] LABS: Free Testosterone (Direct) 0.5 pg/mL (0.0-4.2)
== END 2025-03-05 10:45 | disposition home or self-care (01) ==
LOC: ANHLAB 10:47
PROVIDERS: PCP Family Medicine; Visit Provider Nurse Practitioner Family
DX: E88.819 Insulin resistance, unspecified (principal); Z13.1 Encounter for screening for diabetes mellitus; Z13.220 Encounter for screening for lipoid disorders; E55.9 Vitamin D deficiency, unspecified; Z13.29 Encounter for screening for other suspected endocrine disorder
CPT/HCPCS: 36415; 80048; 80061; 82306; 83525; 84402; 84403; 84443